=== PATIENT | male | born 1965 | race Caucasian/White ===

== ENCOUNTER 2023-02-09 07:47 | Emergency (ER) | payer SELFPAY ==
[2023-02-09 08:17] VITALS: BP 189/100; PULSE 77; RESP 16; TEMP 36.4; O2SAT 100; BMI 33.1
--- NOTE | 2023-02-09 08:36 | ECG_ITS ---
Test Reason : anxiety Blood Pressure : / mmHG Vent. Rate : 072 BPM Atrial Rate : 072 BPM P-R Int : 146 ms QRS Dur : 082 ms QT Int : 424 ms P-R-T Axes : 061 038 044 degrees QTc Int : 464 ms Normal sinus rhythm Normal ECG No previous ECGs available Referred By: Ilda Lundberg Electronically Signed By:HERNANDEZ RODRIGUEZ
--- NOTE | 2023-02-09 08:59 | ED.ANXIETY ---
HPI - Anxiety General Chief Complaint: Anxiety Stated Complaint: Hyperventilation Vomiting Etc Time Seen by Provider: 02/09/23 08:52 Source: patient and family (, [place]) Mode of arrival: ambulatory Limitations: no limitations History of Present Illness HPI narrative: 57-year-old male with a history of depression who presents emergency Related Data Previous Rx's Medication Instructions Recorded alprazolam 0.5 mg tablet (Xanax) 0.5 mg PO TID PRN anxiety #14 tabs 02/09/23 Allergies Allergy/AdvReac Type Severity Reaction Status Date / Time No Known Allergies Allergy Verified 02/09/23 08:16 [facility] Social History Social History Advance Directives: No Advance Directives Information Provided: No Physical Exam Vital Signs: Vital Signs: Last Vital Signs Temp 97.6 F 02/09/23 08:17 Pulse 77 02/09/23 08:17 Resp 16 02/09/23 08:17 BP 189/100 H 02/09/23 08:17 Pulse Ox 100 02/09/23 08:17 O2 Del Method Room Air 02/09/23 08:17 BMI result Body Mass Index 33.1 Medications Administered Discontinued Medications Generic Name Dose Route Start Last Admin Trade Name Freq PRN Reason Stop Dose Admin Lorazepam 2 mg 02/09/23 08:58 02/09/23 09:12 Lorazepam 1 Mg Tablet PO 02/09/23 08:59 2 mg ONCE STA Administration Lorazepam 2 mg 02/09/23 10:37 02/09/23 10:48 Lorazepam 1 Mg Tablet PO 02/09/23 10:38 2 mg ONCE STA Administration Ondansetron HCl 4 mg 02/09/23 09:08 02/09/23 09:11 Ondansetron Odt 4 Mg Tab.Rapdis TRANSLINGU 02/09/23 09:09 4 mg ONCE ONE Administration Ondansetron HCl 4 mg 02/09/23 10:37 02/09/23 10:48 Ondansetron Odt 4 Mg Tab.Rapdis TRANSLINGU 02/09/23 10:38 4 mg ONCE STA Administration Discharge Plan Discharge Clinical Impression: Acute anxiety, Hyperventilation Patient Disposition: Home, Self-Care Instructions: Hyperventilation (ED) Additional Instructions: Your symptoms and presentation are consistent with acute anxiety attack/hyperventilation disorder. This is usually triggered by stress and depression Your treated with Ativan (lorazepam) 2 mg orally x2 doses. This medication will make you sleepy, go home and rest and do not do anything today that would cause injury secondary to drowsiness. Continue taking medications as prescribed by your providers. Take the Xanax 0.5 mg pills, 1 pill 3 times a day as needed for anxiety. This medication can be addicting if your concerned about addiction you can ask the pharmacist for less pills than prescribed or not get the prescription filled. This pill will cause drowsiness, do not drive or participate in any activity that can cause injury while your drowsy. Follow-up with your doctor in 2 days. Please return to the emergency department if your symptoms get worse or if you develop any symptoms that are concerning to you. [facility]) to try to get help with your anxiety. Their phone number is . Prescriptions: New alprazolam [Xanax] 0.5 mg tablet 0.5 mg PO TID PRN (Reason: anxiety) Qty: 14 0RF Rx Instructions: Patient may request partial refill
[2023-02-09] MEDS: Ondansetron ODT 4 MG TAB.RAPDIS TRANSLINGU ×2 (09:11→10:48)
[2023-02-09] MEDS: LORazepam 1 MG TABLET 2 MG PO ×2 (09:12→10:48)
--- NOTE | 2023-02-09 10:48 | PC.NURSE ---
pt reports some relief after 2mg ativan. pt still very anxious however and vomiting. MD notified, further orders submitted. medicated per MAY
== END 2023-02-09 12:16 | disposition home or self-care (01) ==
PROVIDERS: Emergency Provider Emergency Medicine Emergency Medical Services
DX: F41.9 Anxiety disorder, unspecified (principal); R06.4 Hyperventilation; F32.A Depression, unspecified; R06.02 Shortness of breath; Z79.899 Other long term (current) drug therapy
CPT/HCPCS: 93005; 99283

== ENCOUNTER → 2023-02-09 08:36 | Outpatient (BNV) | payer SELFPAY | PROVIDERS: Emergency Provider Emergency Medicine Emergency Medical Services; Visit Provider Internal Medicine | DX: R06.02 Shortness of breath (principal); F41.9 Anxiety disorder, unspecified | CPT/HCPCS: 93010 ==